=== PATIENT | female | born 1995 | race African-American/Black ===

== ENCOUNTER → 2017-03-01 | Outpatient (CLI) | payer MEDICAID ==
--- NOTE | 2017-03-01 16:32 | RADIOLOGY REPORT (SQ) ---
EXAM DESCRIPTION: SHOULDER LEFT 2 OR MORE VIEWS/ left shoulder COMPLETED DATE/TIME: 03/01/2017 4:20 pm REASON FOR STUDY: PAIN IN LEFT SHOULDER M25.512 PAIN IN LEFT SHOULDER COMPARISON: None. NUMBER OF VIEWS: Three views. TECHNIQUE: Internal rotation, external rotation, and Y view images acquired of the left shoulder. LIMITATIONS: None. FINDINGS: MINERALIZATION: Normal. BONES: No acute fracture or dislocation. No worrisome bone lesions. JOINTS: No dislocation. VISUALIZED LUNGS AND RIBS: No pneumothorax. No rib fracture. SOFT TISSUES: No radiopaque foreign body. OTHER: No other significant finding. IMPRESSION: Nothing acute. TECHNICAL DOCUMENTATION: JOB ID: [id number] [employer]- All Rights Reserved
== END ==
LOC: OD 16:03
PROVIDERS: ATTEND Physician Assistant
DX: M25.512 Pain in left shoulder (principal)

== ENCOUNTER 2018-04-19 09:37 | Emergency (ER) | payer MEDICAID ==
[2018-04-19] MEDS ORDERED: CEFTRIAXONE INJ 250 MG VIAL IM ONE (10:10)
[2018-04-19] MEDS ORDERED: AZITHROMYCIN 1 GM SUSP PACKET PO ONE (10:10)
[2018-04-19] MEDS ORDERED: CIPROFLOXACIN HCL 500 MG TABLET PO ONE (10:10)
--- NOTE | 2018-04-19 10:12 | ER Document Report ---
ED Medical Screen (RME) - General Chief Complaint: Headache Stated Complaint: FEVER Time Seen by Provider: 04/19/18 10:04 Notes: 23 years old female presents today with sore throat general body aches and pain , vaginal discharge which is yellow in color for the last 2-3 days. Denies any abdominal pain. Denies any other constitutional symptoms. TRAVEL OUTSIDE OF THE [place] IN LAST 30 DAYS: No - Related Data Allergies/Adverse Reactions: No Known Allergies Allergy (Verified 04/19/18 09:37) Physical Exam - Vital signs Vitals: Temp Pulse Resp BP Pulse Ox 97.9 F 89 14 113/67 99 04/19/18 09:40 04/19/18 09:40 04/19/18 09:40 04/19/18 09:40 04/19/18 09:40 Course - Vital Signs Vital signs: Temp Pulse Resp BP Pulse Ox 97.9 F 89 14 113/67 99 04/19/18 09:40 04/19/18 09:40 04/19/18 09:40 04/19/18 09:40 04/19/18 09:40 Doctor's Discharge - Discharge Referrals: TRISHA HOLLINGSWORTH PA-C [Primary Care Provider] - Follow up as needed
[2018-04-19 10:46] LABS: APPEARANCE,URINE SLIGHTLY-CLOUDY; BILIRUBIN,URINE NEGATIVE (NEGATIVE); COLOR,URINE AMBER; GLUCOSE, URINE NEGATIVE (NEGATIVE); KETONES,URINE NEGATIVE (NEGATIVE); LEUKOCYTE ESTERASE,URINE NEGATIVE (NEGATIVE); NITRITE,URINE NEGATIVE (NEGATIVE); PROTEIN,URINE 30 mg/dL (NEGATIVE); URINE SPECIFIC GRAVITY 1.025
--- NOTE | 2018-04-19 10:58 | ER Document Report ---
ED General - General Chief Complaint: Headache Stated Complaint: FEVER Time Seen by Provider: 04/19/18 10:04 TRAVEL OUTSIDE OF THE [place] IN LAST 30 DAYS: No - HPI Notes: Patient is a 23-year-old female that presents to the emergency department for chief complaint of vaginal discharge, fever and headache. Patient reports fever at home for the last 2 days. The highest was 100.5. She also reports 2 days of a yellow copious discharge. She has a history of frequent bacterial vaginitis and chlamydia. She is sexually active with one partner. She is not using condoms but is on control. She denies any concern for . She also reports that she has had intermittent headaches , the headache is not currently present. She states yesterday she had a sore throat which is also now resolved. She has not taken any medications today at home. Past Medical History: Negative Past Surgical History: TM tubes Social History: Denies drugs alcohol and tobacco Family History: Reviewed and noncontributory for presenting illness Allergies: Reviewed, see documented allergy list. REVIEW OF SYSTEMS: CONSTITUTIONAL : fever No chills No diaphoresis No recent illness EENT: No vision changes No congestion No sore throat CARDIOVASCULAR: No chest pain No palpitations RESPIRATORY: No shortness of breath No cough No difficulty breathing GASTROINTESTINAL: No abdominal pain No nausea No vomiting No diarrhea GENITOURINARY: Vaginal discharge No dysuria No hematuria No difficulty urinating MUSCULOSKELETAL: No back pain No leg pain No arm pain SKIN: No rashes No lesions LYMPHATIC: No swollen, enlarged glands. NEUROLOGICAL: No lightheadedness headache No weakness No paresthesias PSYCHIATRIC: No anxiety No depression PHYSICAL EXAMINATION: Vital signs reviewed, nursing noted reviewed. GENERAL: Well-appearing, well-nourished and in no acute distress. HEAD: Atraumatic, normocephalic. EYES: Eyes appear normal, extraocular movements intact, sclera anicteric, conjunctiva are normal. ENT: nares patent, oropharynx clear without exudates. Moist mucous membranes. NECK: Normal range of motion, supple without lymphadenopathy LUNGS: Breath sounds clear to auscultation bilaterally and equal. No wheezes rales or rhonchi. HEART: Regular rate and rhythm without murmurs ABDOMEN: Soft, nontender, normoactive bowel sounds. No rebound, guarding, or rigidity. No masses appreciated. : Copious green vaginal discharge with malodor. No cervical motion tenderness or adnexal fullness. No external rashes or lesions EXTREMITIES: Nontender, good range of motion, no pitting or edema. NEUROLOGICAL: No focal neurological deficits. Moves all extremities spontaneously Motor and sensory grossly intact on exam. PSYCH: Normal mood, normal affect. SKIN: Warm, Dry, normal turgor, no rashes or lesions noted on exposed skin - Related Data Allergies/Adverse Reactions: No Known Allergies Allergy (Verified 04/19/18 09:37) Past Medical History - Social History Smoking Status: Never Smoker Chew tobacco use (# tins/day): No Frequency of alcohol use: None Drug Abuse: None Family History: Reviewed & Not Pertinent Patient has suicidal ideation: No Patient has homicidal ideation: No Renal/ Medical History: Denies: Hx Peritoneal Dialysis Review of Systems - Review of Systems Notes: Dictated Physical Exam - Vital signs Vitals: Temp Pulse Resp BP Pulse Ox 97.9 F 89 14 113/67 99 04/19/18 09:40 04/19/18 09:40 04/19/18 09:40 04/19/18 09:40 04/19/18 09:40 - Notes Notes: Dictated Course - Re-evaluation Re-evalutation: 04/19/18 10:58 Vitals reviewed. Nursing notes reviewed. Patient afebrile and nontoxic- appearing. Currently she is not having a sore throat or headache. She has elected to be prophylactically treated for gonorrhea and chlamydia and did receive a dose of Rocephin and azithromycin. GC chlamydia culture sent. 04/19/18 11:27 patients pelvic exam consistant with BV and she will be started on flagyl. she is also rapid strep positive and give IM Bicillin in the ED. Patient will follow with her doctor for re-evaluation in a few days. she will return for new or worsening symptoms. Laboratory 04/19/18 04/19/18 04/19/18 10:30 10:30 10:55 Urine Color RAJAT Urine Appearance SLIGHTLY-CLOUDY Urine pH 5.0 Ur Specific [place] 1.025 Urine Protein 30 H Urine Glucose (UA) NEGATIVE Urine Ketones NEGATIVE Urine Blood NEGATIVE Urine Nitrite NEGATIVE Urine Bilirubin NEGATIVE Urine Urobilinogen 4.0 H Ur Leukocyte Esterase NEGATIVE Urine WBC (Auto) 6 Urine RBC (Auto) 4 Squamous Epi Cells Auto 2 Urine Mucus (Auto) MANY Urine Ascorbic Acid NEGATIVE Urine HCG, Qual NEGATIVE Bacteria (Wet Prep) 3+ BACTERIA SEEN Trichomonas (Wet Prep) NO TRICHOMONAS SEEN Vaginal WBC 2+ WBCS SEEN Vaginal RBC 1+ RBCS SEEN Vaginal Yeast NO YEAST SEEN Group A Strep Rapid POSITIVE - Vital Signs Vital signs: Temp Pulse Resp BP Pulse Ox 97.9 F 89 14 113/67 99 04/19/18 09:40 04/19/18 09:40 04/19/18 09:40 04/19/18 09:40 04/19/18 09:40 - Laboratory Laboratory results interpreted by me: 04/19/18 10:30 Urine Protein 30 H Urine Urobilinogen 4.0 H Discharge - Discharge Clinical Impression: Strep throat, Bacterial vaginitis Condition: Stable Disposition: HOME, SELF-CARE Instructions: Strep Throat ([facility]), Vaginosis, Bacterial ([facility]) Additional Instructions: Please return to the emergency department if you have any worsening, or concern of your symptoms. Please return to the emergency department if you develop chest pain, difficulty breathing, severe abdominal pain, or ongoing vomiting. Please follow-up with your primary care physician in 2-3 days and any other recommended physicians. If prescribed, take all medications as directed. If you have any questions or concerns do not hesitate to return the emergency department for evaluation. [] Prescriptions: Metronidazole [Flagyl 500 mg Tablet] 500 mg PO BID #14 tablet Referrals: TRISHA HOLLINGSWORTH PA-C [Primary Care Provider] - Follow up in 3-5 days
[2018-04-19 11:14] LABS: BACTERIA (WET MOUNT) 3+ BACTERIA SEEN; RBCS (WET MOUNT) 1+ RBCS SEEN; T.VAGINALIS (WET MOUNT) NO TRICHOMONAS SEEN; WBCS (WET MOUNT) 2+ WBCS SEEN; YEAST (WET MOUNT) NO YEAST SEEN
[2018-04-19] MEDS ORDERED: PENICILLIN G BENZATHINE 1.2 MILLION UNIT/2 ML DISP.SYRIN IM ONE (11:26)
[2018-04-19] MEDS ORDERED: ONDANSETRON 4 MG TAB.RAPDIS PO ONE (11:29)
[2018-04-19 11:58] VITALS: BP 91/53
[2018-04-19 12:42] LABS: CHLAM PCR NOT DETECTED (NOT DETECT); GON PCR NOT DETECTED (NOT DETECT)
== END 2018-04-19 11:59 | disposition home or self-care (01) ==
LOC: ER 09:37
DX: N76.0 Acute vaginitis (principal); B96.89 Other specified bacterial agents as the cause of diseases classified elsewhere; J02.0 Streptococcal pharyngitis; R50.9 Fever, unspecified; Z79.3 Long term (current) use of hormonal contraceptives
CPT/HCPCS: 99284; 96372; 87210; 87880; 81025; 81001; 87491; 87591; J3490; S0119; Q0144; J0561; J0696